=== PATIENT | female | born 1995 | race Caucasian/White ===

== ENCOUNTER 2017-03-28 12:52 | Emergency (ER) | payer OTHER | END 2017-03-28 15:28 | disposition home or self-care (01) | LOC: ER 12:52 | DX: K80.50 Calculus of bile duct without cholangitis or cholecystitis without obstruction (principal); N39.0 Urinary tract infection, site not specified; Z90.89 Acquired absence of other organs | CPT/HCPCS: 36415; 96361; 96374 ==